=== PATIENT | male | born 2000 | race African-American/Black ===

== ENCOUNTER 2021-10-19 20:55 | Emergency (ER) | payer OTHER, MEDICAID ==
[~2021-10-19] VITALS: Ht 188 cm; Wt 83.0 kg
[2021-10-19 21:20] VITALS: BP 122/75
[2021-10-19] MEDS ORDERED: DIPHENHYDRAMINE 50MG/ML VIAL IV ONE (22:00)
[2021-10-19] MEDS ORDERED: EPINEPHRINE 1:1000 1 MG/ML AMP IM ONE (22:00)
[2021-10-19] MEDS ORDERED: METHYLPREDNISOLONE SOD SUCC 125 MG/2 ML VIAL IV ONE (22:00)
[2021-10-19] MEDS ORDERED: DIPH25CA83 MT (22:25)
[2021-10-19] MEDS ORDERED: P20 MT (22:25)
[2021-10-19] MEDS ORDERED: EPIN0.3P3 IM (22:25)
== END 2021-10-19 23:13 | disposition home or self-care (01) ==
LOC: ER 20:55
DX: T78.2XXA Anaphylactic shock, unspecified, initial encounter (principal)
CPT/HCPCS: 96372; 96374; 96375; 99291; J1200; J2930; J3490